=== PATIENT | male | born 1955 | race African-American/Black ===

== ENCOUNTER 2018-03-12 13:01 | Outpatient (CLI) | payer OTHER ==
[~2018-03-12 13:01] MED LIST: GADOBUTROL 10 MMOL/10 ML VIAL ONE
[2018-03-12] MEDS ORDERED: GADOBUTROL 10 MMOL/10 ML VIAL IVP ONE (13:42)
--- NOTE | 2018-03-12 15:36 | MRI Report ---
Procedure Date: 03/12/2018 Accession Number: [id number] / [id number] Procedure: MRI - Brain W/WO CPT Code: FULL RESULT: EXAM: MRI BRAIN WITHOUT AND WITH CONTRAST EXAM DATE: 03/12/2018 01:54 PM. CLINICAL HISTORY: Pituitary adenoma, follow-up. COMPARISON: Prior MRI brain and pituitary studies 11/03/2014, 02/16/2014. TECHNIQUE: Multiplanar, multisequence T1-weighted and fluid-sensitive MR sequences of the brain were performed. Sequences optimized for routine evaluation. Other: None. IV Contrast: 10 cc Gadavist. Findings: Relevant images are indicated (image number, series number). Again seen pituitary adenoma, unchanged in measurements since 11/03/2014, rightward deviation of the infundibulum, margins are circumscribed as described previously. No acute or subacute ischemic change. Mild scattered periventricular, subcortical white matter disease present. No significant cortical atrophy. There is no significant midbrain atrophy. Craniocervical junction, limited evaluation upper cervical cord negative. Impressions: 1. Stable pituitary macroadenoma as described previously on 11/03/2014, see the prior report for details. No significant interval change. 2. Mild scattered nonspecific white matter disease otherwise unremarkable brain. RADIA
== END 2018-03-12 13:02 | disposition home or self-care (01) ==
LOC: DI 13:01
PROVIDERS: ATTEND Internal Medicine
DX: D35.2 Benign neoplasm of pituitary gland (principal); R90.82 White matter disease, unspecified
CPT/HCPCS: 70553; A9585

== ENCOUNTER 2018-10-17 08:48 | Emergency (ER) | payer OTHER ==
--- NOTE | 2018-10-17 09:43 | XRAY Report ---
Reason: cough/congestion x 2 Procedure Date: 10/17/2018 Accession Number: [id number] / [id number] Procedure: XR - Chest 2 View X-Ray CPT Code: 95665 FULL RESULT: EXAM: CHEST RADIOGRAPHY EXAM DATE: 10/17/2018 09:24 AM. CLINICAL HISTORY: Cough/congestion x 2 weeks. COMPARISON: 02/21/2012 9:58 AM. TECHNIQUE: 2 views. FINDINGS: Lungs/Pleura: No focal opacities evident. No pleural effusion. No pneumothorax. Normal volumes. Mediastinum: Heart size is normal. Slight tortuosity in the descending thoracic aorta, as before. Other: Mild diffuse idiopathic skeletal hyperostosis in the lower thoracic spine. IMPRESSION: Negative chest. Lungs are clear. RADIA
--- NOTE | 2018-10-17 09:45 | ED Physician Documentation ---
PD HPI URI - Stated complaint Stated Complaint: COUGH/CONGESTION - Chief complaint Chief Complaint: Resp - History obtained from History obtained from: Patient - History of Present Illness Timing - onset: How many weeks ago (2) Timing duration: Weeks (2) Timing details: Gradual onset, Still present Associated symptoms: Fever Contributing factors: No: Sick contact, Immunocompromised Worsened by: Activity Similar symptoms before: Has not had sx before Recently seen: Not recently seen Review of Systems Constitutional: reports: Fever, Chills Nose: reports: Congestion. denies: Rhinorrhea / runny nose Throat: denies: Sore throat Cardiac: denies: Chest pain / pressure, Palpitations Respiratory: reports: Dyspnea, Cough, Wheezing GI: denies: Nausea, Vomiting, Diarrhea Skin: denies: Rash, Lesions PD PAST MEDICAL HISTORY - Past Medical History Cardiovascular: Hypertension Respiratory: None Endocrine/Autoimmune: Type 2 diabetes GI: None : None HEENT: None Psych: None Musculoskeletal: None Derm: None - Past Surgical History Past Surgical History: No General: Hiatal hernia repair - Present Medications Home Medications: Ambulatory Orders Medication Instructions Recorded Confirmed amLODIPine [Norvasc] 10 mg PO DAILY 02/04/14 09/06/18 Cholecalciferol (Vitamin D3) 1 tab ORAL DAILY 05/11/17 09/06/18 [Vitamin D3] [place]-3/Dha/Epa/Lipids [Hm 500 mg ORAL DAILY 05/11/17 09/06/18 Megakrill 500 mg Softgel] Losartan Potassium [Cozaar] 1 tab ORAL DAILY 05/11/17 09/06/18 Multivit-Min/FA/Lycopen/Lutein 1 tab ORAL DAILY 05/11/17 09/06/18 [Centrum Silver Men Tablet] Potassium Chloride 1 tab ORAL DAILY 05/11/17 09/06/18 Pravastatin [Pravachol] 40 mg ORAL DAILY 05/11/17 09/06/18 Testosterone [Fortesta] 4 drops ORAL DAILY 05/11/17 09/06/18 Ubidecarenone/Vitamin E Mixed 100 mg ORAL DAILY 05/11/17 09/06/18 [Mcw12-Xih E 100 mg-10 Unit Sfg] Ascorbic Acid [Vitamin C] 500 mg PO DAILY 08/03/17 09/06/18 Cyanocobalamin (Vitamin B-12) 5,000 mcg PO DAILY 08/03/17 09/06/18 [Vitamin B-12] Folic Acid 0.8 mg PO DAILY 08/03/17 09/06/18 Albuterol Sulf [Ventolin Hfa 2 - 3 puffs INH Q4HR PRN #1 inhaler 10/17/18 Inhaler] Benzonatate [Tessalon Perle] 100 - 200 mg PO TID PRN #30 capsule 10/17/18 Dexamethasone [Decadron] 4 mg PO DAILY #5 tablet 10/17/18 Doxycycline Hyclate 100 mg PO BID #20 capsule 10/17/18 - Allergies Allergies/Adverse Reactions: Allergies Allergy/AdvReac Type Severity Reaction Status Date / Time No Known Drug Allergies Allergy Verified 10/17/18 09:08 - Social History Does the pt smoke?: No Smoking Status: Never smoker Does the pt drink ETOH?: No Does the pt have substance abuse?: No PD ED PE NORMAL - Vitals Vital signs reviewed: Yes - General General: Alert and oriented X 3, Well developed/nourished - HEENT HEENT: Ears normal, Moist mucous membranes, Pharynx benign - Neck Neck: Supple, no meningeal sign, No adenopathy - Cardiac Cardiac: RRR, No murmur - Respiratory Respiratory: No respiratory distress. No: Clear bilaterally (exp wheezes and congestion with breathing and coughing. ) - Abdomen Abdomen: Soft, Non tender - Derm Derm: Normal color, Warm and dry - Extremities Extremities: No tenderness to palpate, Normal ROM s pain, No edema, No calf tenderness / cord - Neuro Neuro: Alert and oriented X 3, No motor deficit, Normal speech Results - Vitals Vitals: Vital Signs - 24 hr 10/17/18 10/17/18 10/17/18 09:04 10:18 10:41 Temperature 37.0 C 63.3 C H Heart Rate 70 68 63 Respiratory 16 18 18 Rate Blood Pressure 130/80 116/69 O2 Saturation 97 97 Oxygen O2 Source Room air PD MEDICAL DECISION MAKING - ED course Complexity details: considered differential (URI symptoms then resurgent cough and fever, seems c/w secondary bacterial.), d/w patient Departure - Departure Disposition: 01 Home, Self Care Clinical Impression: Acute bronchitis Qualifiers: Bronchitis organism: unspecified organism Qualified Code(s): J20.9 - Acute bronchitis, unspecified Condition: Stable Record reviewed to determine appropriate education?: Yes Instructions: ED Upper Resp Infec Abx Tx Follow-Up: KWAME KUMAR MD [Primary Care Provider] - Prescriptions: Albuterol Sulf [Ventolin Hfa Inhaler] 2 - 3 puffs INH Q4HR PRN #1 inhaler PRN Reason: Shortness Of Air/Wheezing Benzonatate [Tessalon Perle] 100 - 200 mg PO TID PRN #30 capsule PRN Reason: Cough Dexamethasone [Decadron] 4 mg PO DAILY #5 tablet Doxycycline Hyclate 100 mg PO BID #20 capsule Comments: Use albuterol inhaler 2 puffs 4 times a day and added times if needed for wheezing and cough. Decadron steroid daily for inflammation of the bronchials. Doxycycline antibiotic twice daily for a week for the infection. This could still be viral but the duration and symptoms of it suggest possibly bacterial. Add Tessalon if needed for cough. Cough medicine can be used as well. Drink lots of fluids. Recheck if not improving over the next several days to week. Discharge Date/Time: 10/17/18 10:45
[2018-10-17] MEDS ORDERED: ALBUTEROL NEB 2.5 MG/3 ML INH STA (10:03)
[2018-10-17] MEDS ORDERED: DEXAMETHASONE 10 MG/ML VIAL PO STA (10:04)
[2018-10-17] MEDS ORDERED: DOXYCYCLINE 100 MG TABLET PO STA (10:04)
[2018-10-17] MEDS ORDERED: BENZONATATE 100 MG CAPSULE PO STA (10:04)
[2018-10-17] MEDS ORDERED: CHERRY SYRUP 10 ML UDC PO ONE (10:21)
[2018-10-17 10:43] VITALS: BP 116/69
== END 2018-10-17 10:45 | disposition home or self-care (01) ==
LOC: ED 08:48
DX: J02.9 Acute pharyngitis, unspecified (principal); E11.9 Type 2 diabetes mellitus without complications; I10 Essential (primary) hypertension
CPT/HCPCS: 71046; 94640; 94664; 99283; A9270

== ENCOUNTER 2023-04-01 08:39 | Outpatient (CLI) | payer OTHER ==
--- NOTE | 2023-04-01 15:33 | Ultrasound Report ---
PROCEDURE: Aorta Screening INDICATIONS: HIST OF SMOKING TECHNIQUE: Real time scanning was performed of the aorta and iliac arteries, with image documentatio n. COMPARISON: None. FINDINGS: Aorta: Proximal aortic diameter measures 2.2 x 2.3 cm. Mid-aorta measures 1.9 x 1.7 cm. Distal aor tic diameter is 1.7 x 1.7 cm. Iliac arteries: Right common iliac artery measures 1.4 x 1.0 cm. Left common iliac artery measures 1.4 x 1.5 cm. IMPRESSION: Unremarkable ultrasound of the aorta without aneurysm Reviewed by: Phil Tovar MD on 04/01/2023 2:32 PM [facility] Approved by: Phil Tovar MD on 04/01/2023 2:32 PM [facility] Station ID: [id number]
== END 2023-04-01 08:40 | disposition home or self-care (01) ==
LOC: DI 08:39
PROVIDERS: ATTEND Family Medicine
DX: Z13.6 Encounter for screening for cardiovascular disorders (principal); Z87.891 Personal history of nicotine dependence

== ENCOUNTER 2024-06-18 15:51 | Emergency (ER) | payer MEDICARE, OTHER ==
[2024-06-18 16:08] VITALS: BP 143/76; O2SAT 98
--- NOTE | 2024-06-18 16:16 | ED Physician Documentation ---
<Domingo Dawn - Last Filed: 06/18/24 17:43> History of Present Illness - Stated complaint Stated Complaint: FEVER,WEAKNESS - Chief complaint Chief Complaint: Fever - Additonal information Additional information: 68-year-old gentleman with history of type 2 diabetes has been sick for about 48 hours with fevers, shaking chills, body aches and generalized weakness. He denies abdominal pain, cough, urinary complaints, or diarrhea. His is at the bedside and he she has not felt ill. PD PAST MEDICAL HISTORY - Present Medications Home Medications: Ambulatory Orders Medication Instructions Recorded Confirmed amLODIPine [Norvasc] 10 mg PO DAILY 02/04/14 06/18/24 Losartan Potassium [Cozaar] 100 mg ORAL DAILY 05/11/17 06/18/24 Pravastatin [Pravachol] 40 mg ORAL DAILY 05/11/17 06/18/24 Testosterone [Fortesta] 4 drops ORAL DAILY 05/11/17 06/18/24 Ascorbic Acid [Vitamin C] 500 mg PO DAILY 08/03/17 06/18/24 Folic Acid 0.8 mg PO DAILY 08/03/17 06/18/24 Multivitamin W/Minerals [Theragran 1 tab PO DAILY 04/26/19 06/18/24 M] - Allergies Allergies/Adverse Reactions: Allergies Allergy/AdvReac Type Severity Reaction Status Date / Time No Known Drug Allergies Allergy Verified 06/18/24 15:55 PD ED PE NORMAL - Vitals Vital signs reviewed: Yes - General General: Alert and oriented X 3, No acute distress - HEENT HEENT: PERRL, EOMI, Ears normal, Pharynx benign - Neck Neck: Supple, no meningeal sign, No bony TTP - Cardiac Cardiac: RRR, No murmur - Respiratory Respiratory: No respiratory distress, Clear bilaterally - Abdomen Abdomen: Non tender - Derm Derm: No rash - Extremities Extremities: No edema, No calf tenderness / cord - Neuro Neuro: Alert and oriented X 3, No motor deficit, No sensory deficit, Normal speech Eye Opening: Spontaneous Motor: Obeys Commands Verbal: Oriented GCS Score: 15 - Psych Psych: Normal mood PD Medical Decision Making - ED course ED course: This is a 68-year-old gentleman with what sound like a viral syndrome with shaking chills, but nonspecific complaints and no bacterial focus of illness on history or physical. He is workup here demonstrates a white count that is normal. Modest anemia which she was already aware of. Mild hyponatremia likely due to dehydration, no lactic acidosis, normal urinalysis, and negative [employer] respiratory panel. He felt better after IV fluids and conservative care was advised along with close return precautions. Departure - Departure Disposition: 01 Home, Self Care Clinical Impression: Viral syndrome Condition: Good Record reviewed to determine appropriate education?: Yes Instructions: ED Viral Syndrome Comments: Given your symptomatology and relatively normal labs you probably have a viral syndrome, it is good that you are feeling better after IV fluids and I would continue to make sure you are hydrating well. Take it easy over the next couple of days and you can take Tylenol and/or ibuprofen as needed for aches and pains. Return if you worsen, follow-up with your doctor midweek if not better. We do have blood cultures pending. Given your vital signs and labs I doubt they will be positive, but if they were we will call you. Forms: PCP List Discharge Date/Time: 06/18/24 18:01 <Lorena Montano - Last Filed: 06/18/24 21:59> PD PAST MEDICAL HISTORY - Past Medical History Past Medical History: Yes Cardiovascular: Hypertension, High cholesterol Respiratory: None Neuro: None Endocrine/Autoimmune: Type 2 diabetes GI: None : None HEENT: None Psych: None Musculoskeletal: None Derm: None - Past Surgical History Past Surgical History: Yes General: Hiatal hernia repair - Social History Does the pt smoke?: No Smoking Status: Former smoker Does the pt drink ETOH?: Yes Does the pt have substance abuse?: No - Immunizations Immunizations are current?: Yes - POLST Patient has POLST: No Results - Vitals Vitals: Vital Signs - 24 hr 06/18/24 15:55 Temperature 37.4 C Heart Rate 70 Respiratory 16 Rate Blood Pressure 143/76 H O2 Saturation 98 Oxygen O2 Source Room air - Labs Labs: Laboratory Tests 06/18/24 06/18/24 06/18/24 16:00 16:30 16:30 WBC 7.6 RBC 3.54 L Hgb 10.3 L Hct 30.8 L MCV 87.0 MCH 29.1 MCHC 33.4 RDW 13.2 Plt Count 193 MPV 10.1 Neut # (Auto) 3.2 Lymph # (Auto) 3.3 [place] # (Auto) 0.9 Eos # (Auto) 0.1 Baso # (Auto) 0.1 Absolute Nucleated RBC 0.00 Nucleated RBC % 0.0 Sodium 129 L Potassium 3.6 Chloride 98 L Carbon Dioxide 21 Anion Gap 10.0 BUN 13 Creatinine 0.9 Estimated GFR (MDRD) 102 Glucose 132 H Lactic Acid Calcium 9.6 Total Bilirubin 0.6 AST 21 ALT 17 Alkaline Phosphatase 48 Total Protein 7.4 Albumin 4.5 Globulin 2.9 Albumin/Globulin Ratio 1.6 Urine Color Urine Clarity Urine pH Ur Specific [place] Urine Protein Urine Glucose (UA) Urine Ketones Urine Occult Blood Urine Nitrite Urine Bilirubin Urine Urobilinogen Ur Leukocyte Esterase Ur Microscopic Review Urine Culture Comments Nasal Adenovirus (PCR) NOT DETECTED Nasal B. parapertussis DNA (PCR) NOT DETECTED Nasal Coronavir 229E PCR NOT DETECTED Nasal Coronavir HKU1 PCR NOT DETECTED Nasal Coronavir NL63 PCR NOT DETECTED Nasal Coronavir OC43 PCR NOT DETECTED Nasal Enterovir/Rhinovir PCR NOT DETECTED Nasal Influenza B PCR NOT DETECTED Nasal Influenza A PCR NOT DETECTED Nasal Parainfluen 1 PCR NOT DETECTED Nasal Parainfluen 2 PCR NOT DETECTED Nasal Parainfluen 3 PCR NOT DETECTED Nasal Parainfluen 4 PCR NOT DETECTED Nasal RSV (PCR) NOT DETECTED Nasal B.pertussis DNA PCR NOT DETECTED Nasal C.pneumoniae (PCR) NOT DETECTED [place] Human Metapneumo PCR NOT DETECTED Nasal M.pneumoniae (PCR) NOT DETECTED Nasal SARS-CoV-2 (PCR) NOT DETECTED 06/18/24 06/18/24 16:30 17:10 WBC RBC Hgb Hct MCV MCH MCHC RDW Plt Count MPV Neut # (Auto) Lymph # (Auto) [place] # (Auto) Eos # (Auto) Baso # (Auto) Absolute Nucleated RBC Nucleated RBC % Sodium Potassium Chloride Carbon Dioxide Anion Gap BUN Creatinine Estimated GFR (MDRD) Glucose Lactic Acid 0.6 Calcium Total Bilirubin AST ALT Alkaline Phosphatase Total Protein Albumin Globulin Albumin/Globulin Ratio Urine Color YELLOW Urine Clarity CLEAR Urine pH 6.0 Ur Specific [place] 1.020 Urine Protein NEGATIVE Urine Glucose (UA) NEGATIVE Urine Ketones 15 H Urine Occult Blood NEGATIVE Urine Nitrite NEGATIVE Urine Bilirubin NEGATIVE Urine Urobilinogen 0.2 (NORMAL) Ur Leukocyte Esterase NEGATIVE Ur Microscopic Review NOT INDICATED Urine Culture Comments NOT INDICATED Nasal Adenovirus (PCR) Nasal B. parapertussis DNA (PCR) Nasal Coronavir 229E PCR Nasal Coronavir HKU1 PCR Nasal Coronavir NL63 PCR Nasal Coronavir OC43 PCR Nasal Enterovir/Rhinovir PCR Nasal Influenza B PCR Nasal Influenza A PCR Nasal Parainfluen 1 PCR Nasal Parainfluen 2 PCR Nasal Parainfluen 3 PCR Nasal Parainfluen 4 PCR Nasal RSV (PCR) Nasal B.pertussis DNA PCR Nasal C.pneumoniae (PCR) [place] Human Metapneumo PCR Nasal M.pneumoniae (PCR) Nasal SARS-CoV-2 (PCR) PD Medical Decision Making - ED course ED course: This note was entered in error and I did not evaluate or see this patient. Lorena Montano, DNP
[2024-06-18 16:40] LABS: BASOPHILS # (AUTO) 0.1 10^3/uL (0.0-0.1); BASOPHILS % (AUTO) 0.9 %; EOSINOPHILS # (AUTO) 0.1 10^3/uL (0.0-0.7); EOSINOPHILS % (AUTO) 1.3 %; HCT - HEMATOCRIT 30.8 % (42.0-52.0); HGB - HEMOGLOBIN 10.3 g/dL (14.0-18.0); LYMPHOCYTES # (AUTO) 3.3 10^3/uL (1.5-3.5); LYMPHOCYTES % (AUTO) 43.2 %; MEAN CORPUSCULAR HEMOGLOBIN 29.1 pg (27.0-31.0); MEAN CORPUSCULAR HGB CONC 33.4 g/dL (32.0-36.0); MEAN PLATELET VOLUME 10.1 fL (7.4-11.4); MONOCYTES # (AUTO) 0.9 10^3/uL (0.0-1.0); MONOCYTES % (AUTO) 12.1 %; NEUTROPHILS # (AUTO) 3.2 10^3/uL (1.5-6.6); NEUTROPHILS % (AUTO) 42.4 %; PLT - PLATELET COUNT 193 10^3/uL (130-450); RED BLOOD COUNT 3.54 10^6/uL (4.70-6.10); RED CELL DISTRIBUTION WIDTH 13.2 % (12.0-15.0); WHITE BLOOD COUNT 7.6 x10^3/uL (4.8-10.8)
[2024-06-18] MEDS: SODIUM CHLORIDE 0.9% 1,000 ML IV STA (16:41)
[2024-06-18 16:56] LABS: ALBUMIN 4.5 g/dL (3.2-5.5); ALBUMIN/GLOBULIN RATIO 1.6 (1.0-2.2); BILIRUBIN,TOTAL 0.6 mg/dL (0.2-1.0); CALCIUM 9.6 mg/dL (8.5-10.3); CREATININE 0.9 mg/dL (0.6-1.3); POTASSIUM 3.6 mmol/L (3.5-4.5); TOTAL PROTEIN 7.4 g/dL (6.4-8.9)
[2024-06-18 16:57] LABS: B. PARAPERTUSSIS- RESP PCR PAN NOT DETECTED; B. PERTUSSIS- RESP PCR PANEL NOT DETECTED; C. PNEUMONIAE- RESP PCR PANEL NOT DETECTED; CORONAVIRUS 229E-RESP PCR NOT DETECTED; CORONAVIRUS HKU1-RESP PCR NOT DETECTED; CORONAVIRUS NL63-RESP PCR NOT DETECTED; CORONAVIRUS OC43-RESP PCR NOT DETECTED; HUMAN METAPNEUMOVIRUS NOT DETECTED; INFLUENZA A- RESP PCR PANEL NOT DETECTED; INFLUENZA B - RESP PCR PANEL NOT DETECTED; M. PNEUMONIAE- RESP PCR PANEL NOT DETECTED; PARAINFLUENZA VIRUS 1 NOT DETECTED; PARAINFLUENZA VIRUS 2 NOT DETECTED; PARAINFLUENZA VIRUS 3 NOT DETECTED; PARAINFLUENZA VIRUS 4 NOT DETECTED; RHINOVIRUS/ENTEROVIRUS NOT DETECTED; RSV- RESP PCR PANEL NOT DETECTED; SARS-CoV-2 -RESP PCR PANEL NOT DETECTED
[2024-06-18 17:14] LABS: BILIRUBIN,URINE NEGATIVE (NEGATIVE); GLUCOSE, URINE (UA) NEGATIVE (NEGATIVE); KETONES,URINE (UA) 15 mg/dL (NEGATIVE); LEUKOCYTE ESTERASE, URINE NEGATIVE (NEGATIVE); NITRITE,URINE NEGATIVE (NEGATIVE); OCCULT BLOOD,URINE NEGATIVE (NEGATIVE); PROTEIN,URINE NEGATIVE (NEGATIVE); UROBILINOGEN,URINE 0.2 (NORMAL) E.U./dL (NORMAL)
[2024-06-18 17:16] LABS: CLARITY,URINE CLEAR (CLEAR)
== END 2024-06-18 18:01 | disposition home or self-care (01) ==
LOC: ED 15:51
DX: B34.9 Viral infection, unspecified (principal); E11.9 Type 2 diabetes mellitus without complications; Z79.899 Other long term (current) drug therapy; I10 Essential (primary) hypertension; E78.00 Pure hypercholesterolemia, unspecified
CPT/HCPCS: 36415; 80053; 81001; 81003; 83605; 85025; 87040; 87086; 87633; 99283